=== PATIENT | female | born 1955 | race Caucasian/White ===

== ENCOUNTER 2017-10-27 15:28 | Emergency (ER) | payer MEDICAID, OTHER ==
[~2017-10-27] VITALS: Ht 160 cm; Wt 50.0 kg
[~2017-10-27 15:28] MED LIST: CYCL-1 PO; CYCL-394 PO; HAL5T PO; NAPR-56 PO; PROM25TA14 PO
[2017-10-27 15:39] VITALS: BP 107/78
== END 2017-10-27 17:53 | disposition left against medical advice (07) ==
LOC: EEVIPCON 15:28 → ER 15:28
DX: S22.32XA Fracture of one rib, left side, initial encounter for closed fracture (principal); J93.9 Pneumothorax, unspecified; X58.XXXA Exposure to other specified factors, initial encounter; Y93.89 Activity, other specified; Y92.89 Other specified places as the place of occurrence of the external cause; Y99.8 Other external cause status; Z88.5 Allergy status to narcotic agent; F20.9 Schizophrenia, unspecified; Z90.710 Acquired absence of both cervix and uterus; Z59.0 Homelessness
CPT/HCPCS: 71046; 99284

== ENCOUNTER 2017-10-28 16:38 | Inpatient (IN) | payer MEDICAID, OTHER ==
[~2017-10-28] VITALS: Ht 5200 cm; Wt 55.0 kg
[2017-10-28] MEDS ORDERED: normal saline 1000ML IV soln IVB ONE (17:10)
[2017-10-28] MEDS ORDERED: haloperidol lactate 5mg/ml inj IM ONE ×2 (17:25→20:20)
[2017-10-28] MEDS ORDERED: LORazepam 2 mg/ml vial IM ONE ×2 (17:25→20:10)
[2017-10-28 18:08] LABS: BASOPHILS % (AUTO) 0.3 % (0-1); EOSINOPHILS # (AUTO) 0.4 X10'3 (0-0.9); EOSINOPHILS % (AUTO) 5.1 % (0-6); HEMATOCRIT 30.5 % (35.0-45.0); HEMOGLOBIN 10.3 g/dl (12.0-16.0); LYMPHOCYTES # (AUTO) 1.4 X10'3 (1.1-4.8); LYMPHOCYTES % (AUTO) 18.9 % (21-51); MEAN CORPUSCULAR HEMOGLOBIN 28.4 PG (27.0-31.0); MEAN CORPUSCULAR HGB CONC 33.7 % (33.0-36.5); MEAN CORPUSCULAR VOLUME 84.1 FL (78-98); MEAN PLATELET VOLUME 7.2 FL (7.4-10.4); MONOCYTES # (AUTO) 0.5 X10'3 (0-0.9); MONOCYTES % (AUTO) 7.3 % (2-12); NEUTROPHILS # (AUTO) 5.1 X10'3 (1.8-7.7); NEUTROPHILS % (AUTO) 68.4 % (42-75); PLATELET COUNT 584 X10'3 (140-440); RED BLOOD COUNT 3.63 X10'6 (4.20-5.60); RED CELL DISTRIBUTION WIDTH 13.9 % (11.5-14.5); WHITE BLOOD COUNT 7.4 X10'3 (4.5-11.0)
[2017-10-28 18:17] LABS: PROTHROMBIN TIME 10.1 SECONDS (9.0-12.0)
[2017-10-28 18:25] LABS: URINE AMPHETAMINE SCREEN NEGATIVE (Neg); URINE BARBITUATE SCREEN NEGATIVE (Neg); URINE BENZODIAZEPINES SCREEN NEGATIVE (Neg); URINE CANNABINOID SCREEN NEGATIVE (Neg); URINE COCAINE SCREEN NEGATIVE (Neg); URINE METHADONE SCREEN NEGATIVE (Neg); URINE OPIATE SCREEN NEGATIVE (Neg); URINE PHENCYCLIDINE SCREEN NEGATIVE (Neg)
[2017-10-28 18:32] LABS: ALANINE AMINOTRANSFERASE 22 U/L (12-78); ALBUMIN 2.8 G/DL (3.4-5.0); ALBUMIN/GLOBULIN RATIO 0.7 (1.1-1.5); ALKALINE PHOSPHATASE 108 IU/L (46-116); ANION GAP 7 (8-16); ASPARTATE AMINO TRANSFERASE 18 U/L (10-37); BILIRUBIN,TOTAL 0.3 MG/DL (0.1-1.0); BLOOD UREA NITROGEN 15 MG/DL (7-18); BUN/CREATININE RATIO 31.9 (6.6-38.0); CALCIUM 8.5 MG/DL (8.5-10.1); CHLORIDE 105 MMOL/L (99-107); CREATININE 0.47 MG/DL (0.40-0.90); ETHANOL < 0.010 GM/DL (0.0-0.010); GLUCOSE 98 MG/DL (70-104); POTASSIUM 3.7 MMOL/L (3.5-5.1); SODIUM 142 MMOL/L (135-145); TOTAL CARBON DIOXIDE 29.9 MMOL/L (24-32); TOTAL PROTEIN 6.8 G/DL (6.4-8.2); eGFR > 90 ML/MIN
[2017-10-28] MEDS ORDERED: diphenhydrAMINE 50 mg/ml inj IM ONE (20:05)
[2017-10-28] MEDS: haloperidol decanoate***LONG-ACTING*** 100mg/ml **IM only** inj. IM ONE ×2 (20:12→20:17)
[2017-10-28] MEDS ORDERED: propofol 10mg/ml 20ml vial IV ONE (20:40)
[2017-10-28] MEDS ORDERED: ketamine 50 mg/ml 10ml vial IV ONE (20:45)
[2017-10-28] MEDS: normal saline 1000ml 1,000 ML IV SCH (21:10)
[2017-10-28] MEDS ORDERED: LIDOcaine 1.5% w/epinephrine 1:200,000 5ml ampul IJ ONE ×2 (21:40)
[2017-10-28] MEDS ORDERED: lidocaine 1.5% w/epinephrine 1:200,000 10ml vial MPF IJ ONE (21:40)
[2017-10-28] MEDS ORDERED: morphine 4 MG/ML inj SYRINge IV ONE (22:05)
[2017-10-28] MEDS ORDERED: albuterol 2.5 MG/3 ML nebule NEB PRN (23:15)
[2017-10-28] MEDS ORDERED: magnesium hydroxide 30ml (MOM) UD suspension PO PRN (23:15)
[2017-10-28] MEDS ORDERED: ondansetron/PF 4mg/2ml inj IV PRN (23:15)
[2017-10-28] MEDS ORDERED: morphine 4 MG/ML inj SYRINge IV PRN (23:15)
[2017-10-28] MEDS ORDERED: mag hydrox/Alum hydrox/simeth 30ml oral suspension PO PRN (23:15)
[2017-10-28] MEDS ORDERED: LORazepam 2 mg/ml vial IV PRN (23:20)
[2017-10-28] MEDS ORDERED: QUEtiapine 25mg tablet PO ONE (23:36)
[2017-10-29] MEDS: normal saline 1000ml 1,000 ML IV SCH ×3 (00:22→12:32)
[2017-10-29 05:33] LABS: CLARITY,URINE CLEAR (Clear); COLOR,URINE YELLOW (Yellow); GLUCOSE, URINE NEGATIVE (Neg); KETONES,URINE NEGATIVE (Neg); LEUKOCYTE ESTERASE ,URINE NEGATIVE (Neg); NITRITES, URINE NEGATIVE (Neg); OCCULT BLOOD,URINE NEGATIVE (Neg); PROTEIN,URINE NEGATIVE (Neg); UROBILINOGEN,URINE 0.2 E.U/dL (0.2-1.0)
[2017-10-29 05:45] LABS: UA COLLECTION TYPE VOIDED
[2017-10-29 07:00] LABS: BASOPHILS % (AUTO) 0.3 % (0-1); EOSINOPHILS # (AUTO) 0.3 X10'3 (0-0.9); EOSINOPHILS % (AUTO) 2.7 % (0-6); HEMATOCRIT 27.4 % (35.0-45.0); HEMOGLOBIN 9.1 g/dl (12.0-16.0); LYMPHOCYTES % (AUTO) 9.3 % (21-51); MEAN CORPUSCULAR HEMOGLOBIN 28.1 PG (27.0-31.0); MEAN CORPUSCULAR HGB CONC 33.2 % (33.0-36.5); MEAN CORPUSCULAR VOLUME 84.7 FL (78-98); MEAN PLATELET VOLUME 7.4 FL (7.4-10.4); MONOCYTES # (AUTO) 0.5 X10'3 (0-0.9); MONOCYTES % (AUTO) 4.6 % (2-12); NEUTROPHILS # (AUTO) 8.6 X10'3 (1.8-7.7); NEUTROPHILS % (AUTO) 83.1 % (42-75); PLATELET COUNT 506 X10'3 (140-440); RED BLOOD COUNT 3.24 X10'6 (4.20-5.60); RED CELL DISTRIBUTION WIDTH 14.3 % (11.5-14.5); WHITE BLOOD COUNT 10.3 X10'3 (4.5-11.0)
[2017-10-29 07:03] LABS: ALBUMIN 2.1 G/DL (3.4-5.0); ANION GAP 6 (8-16); BLOOD UREA NITROGEN 11 MG/DL (7-18); BUN/CREATININE RATIO 22.9 (6.6-38.0); CALCIUM 7.9 MG/DL (8.5-10.1); CHLORIDE 109 MMOL/L (99-107); CREATININE 0.48 MG/DL (0.40-0.90); GLUCOSE 101 MG/DL (70-104); POTASSIUM 3.9 MMOL/L (3.5-5.1); SODIUM 141 MMOL/L (135-145); TOTAL CARBON DIOXIDE 26.3 MMOL/L (24-32); eGFR > 90 ML/MIN
[2017-10-29] MEDS: quetiapine 100mg tablet PO SCH ×2 (08:15→20:26)
[2017-10-29] MEDS: docusate sod 100mg capsule PO SCH ×2 (08:15→20:00)
[2017-10-29] MEDS ORDERED: UNABLE TO OBTAIN (11:45)
[2017-10-29 21:30] VITALS: BP 90/61
[2017-10-29] MEDS ORDERED: ziprasidone IM 20mg inj **IM only IM PRN (22:15)
[2017-10-29] MEDS ORDERED: LORazepam 1 MG tablet PO PRN (22:15)
[2017-10-30] VITALS: BP 103/18
[2017-10-30] MEDS: normal saline 1000ml 1,000 ML IV SCH ×2 (01:52→15:12)
[2017-10-30 07:00] VITALS: BP 102/66
[2017-10-30] MEDS: quetiapine 100mg tablet PO SCH ×2 (08:00→20:00)
[2017-10-30] MEDS: docusate sod 100mg capsule PO SCH ×2 (08:00→20:00)
[2017-10-30] MEDS: acetaminophen 325mg tablet PO PRN ×2 (09:49→15:54)
[2017-10-30] MEDS: levoFLOXACIN 750MG TABLET PO SCH (11:09)
[2017-10-30 12:00] VITALS: BP 97/66
[2017-10-30 16:09] LABS: BASOPHILS % (AUTO) 0.5 % (0-1); EOSINOPHILS # (AUTO) 0.3 X10'3 (0-0.9); EOSINOPHILS % (AUTO) 4.1 % (0-6); HEMATOCRIT 30.4 % (35.0-45.0); HEMOGLOBIN 10.2 g/dl (12.0-16.0); LYMPHOCYTES # (AUTO) 1.1 X10'3 (1.1-4.8); LYMPHOCYTES % (AUTO) 13.5 % (21-51); MEAN CORPUSCULAR HEMOGLOBIN 28.1 PG (27.0-31.0); MEAN CORPUSCULAR HGB CONC 33.4 % (33.0-36.5); MEAN CORPUSCULAR VOLUME 84.1 FL (78-98); MEAN PLATELET VOLUME 7.3 FL (7.4-10.4); MONOCYTES # (AUTO) 0.5 X10'3 (0-0.9); MONOCYTES % (AUTO) 6.3 % (2-12); NEUTROPHILS # (AUTO) 6.4 X10'3 (1.8-7.7); NEUTROPHILS % (AUTO) 75.6 % (42-75); PLATELET COUNT 523 X10'3 (140-440); RED BLOOD COUNT 3.62 X10'6 (4.20-5.60); WHITE BLOOD COUNT 8.4 X10'3 (4.5-11.0)
[2017-10-30 16:18] LABS: ALBUMIN 2.3 G/DL (3.4-5.0); ANION GAP 8 (8-16); BLOOD UREA NITROGEN 12 MG/DL (7-18); BUN/CREATININE RATIO 22.2 (6.6-38.0); CALCIUM 8.3 MG/DL (8.5-10.1); CHLORIDE 107 MMOL/L (99-107); CREATININE 0.54 MG/DL (0.40-0.90); GLUCOSE 112 MG/DL (70-104); POTASSIUM 4.2 MMOL/L (3.5-5.1); SODIUM 143 MMOL/L (135-145); TOTAL CARBON DIOXIDE 28.5 MMOL/L (24-32); eGFR > 90 ML/MIN
[2017-10-30 18:00] VITALS: BP 93/53
[2017-10-30] MEDS: lactobacillus rhamnosus 10,000 MMU CELLS/CAPSULE PO SCH (20:00)
[2017-10-31] MEDS: normal saline 1000ml 1,000 ML IV SCH ×2 (02:28→17:52)
[2017-10-31 05:59] LABS: BASOPHILS % (AUTO) 0.4 % (0-1); EOSINOPHILS # (AUTO) 0.4 X10'3 (0-0.9); EOSINOPHILS % (AUTO) 5.2 % (0-6); HEMATOCRIT 30.2 % (35.0-45.0); LYMPHOCYTES % (AUTO) 13.3 % (21-51); MEAN CORPUSCULAR HGB CONC 33.2 % (33.0-36.5); MEAN CORPUSCULAR VOLUME 84.4 FL (78-98); MEAN PLATELET VOLUME 7.6 FL (7.4-10.4); MONOCYTES # (AUTO) 0.5 X10'3 (0-0.9); NEUTROPHILS # (AUTO) 5.8 X10'3 (1.8-7.7); NEUTROPHILS % (AUTO) 75.1 % (42-75); PLATELET COUNT 513 X10'3 (140-440); RED BLOOD COUNT 3.58 X10'6 (4.20-5.60); RED CELL DISTRIBUTION WIDTH 14.2 % (11.5-14.5); WHITE BLOOD COUNT 7.8 X10'3 (4.5-11.0)
[2017-10-31 06:20] LABS: ANION GAP 8 (8-16); CHLORIDE 106 MMOL/L (99-107); GLUCOSE 132 MG/DL (70-104); POTASSIUM 3.9 MMOL/L (3.5-5.1); SODIUM 142 MMOL/L (135-145); TOTAL CARBON DIOXIDE 28.5 MMOL/L (24-32)
[2017-10-31 06:21] LABS: ALBUMIN 2.2 G/DL (3.4-5.0); BLOOD UREA NITROGEN 8 MG/DL (7-18); BUN/CREATININE RATIO 17.8 (6.6-38.0); CALCIUM 8.4 MG/DL (8.5-10.1); CREATININE 0.45 MG/DL (0.40-0.90); eGFR > 90 ML/MIN
[2017-10-31 07:30] VITALS: BP 95/75
[2017-10-31] MEDS: lactobacillus rhamnosus 10,000 MMU CELLS/CAPSULE PO SCH ×2 (07:58→20:00)
[2017-10-31] MEDS: HYDROcodone/acetaminophen 10/325mg tab PO PRN ×2 (07:59→09:39)
[2017-10-31] MEDS: docusate sod 100mg capsule PO SCH ×2 (08:00→20:00)
[2017-10-31] MEDS: quetiapine 100mg tablet PO SCH ×2 (08:00→09:02)
[2017-10-31 11:00] VITALS: BP 92/70
[2017-10-31] MEDS: levoFLOXACIN 750MG TABLET PO SCH (11:20)
[2017-10-31 18:00] VITALS: BP 99/58
[2017-11-01 05:06] LABS: BASOPHILS % (AUTO) 0.6 % (0-1); EOSINOPHILS # (AUTO) 0.4 X10'3 (0-0.9); EOSINOPHILS % (AUTO) 6.1 % (0-6); HEMATOCRIT 30.8 % (35.0-45.0); HEMOGLOBIN 10.3 g/dl (12.0-16.0); LYMPHOCYTES # (AUTO) 1.1 X10'3 (1.1-4.8); LYMPHOCYTES % (AUTO) 17.6 % (21-51); MEAN CORPUSCULAR HEMOGLOBIN 27.9 PG (27.0-31.0); MEAN CORPUSCULAR HGB CONC 33.5 % (33.0-36.5); MEAN CORPUSCULAR VOLUME 83.4 FL (78-98); MEAN PLATELET VOLUME 7.6 FL (7.4-10.4); MONOCYTES # (AUTO) 0.5 X10'3 (0-0.9); MONOCYTES % (AUTO) 8.1 % (2-12); NEUTROPHILS # (AUTO) 4.2 X10'3 (1.8-7.7); NEUTROPHILS % (AUTO) 67.6 % (42-75); PLATELET COUNT 506 X10'3 (140-440); RED BLOOD COUNT 3.69 X10'6 (4.20-5.60); RED CELL DISTRIBUTION WIDTH 14.2 % (11.5-14.5); WHITE BLOOD COUNT 6.2 X10'3 (4.5-11.0)
[2017-11-01 05:20] LABS: ALBUMIN 2.2 G/DL (3.4-5.0); ANION GAP 7 (8-16); BLOOD UREA NITROGEN 10 MG/DL (7-18); BUN/CREATININE RATIO 19.2 (6.6-38.0); CALCIUM 8.6 MG/DL (8.5-10.1); CHLORIDE 105 MMOL/L (99-107); CREATININE 0.52 MG/DL (0.40-0.90); GLUCOSE 96 MG/DL (70-104); SODIUM 141 MMOL/L (135-145); TOTAL CARBON DIOXIDE 29.3 MMOL/L (24-32); eGFR > 90 ML/MIN
[2017-11-01] MEDS: normal saline 1000ml 1,000 ML IV SCH ×2 (07:12→20:32)
[2017-11-01 07:42] VITALS: BP 86/60
[2017-11-01] MEDS: lactobacillus rhamnosus 10,000 MMU CELLS/CAPSULE PO SCH ×2 (08:00→20:50)
[2017-11-01] MEDS: quetiapine 100mg tablet PO SCH ×2 (08:00→20:50)
[2017-11-01] MEDS: docusate sod 100mg capsule PO SCH ×2 (08:00→20:50)
[2017-11-01] MEDS: levoFLOXACIN 750MG TABLET PO SCH (11:00)
[2017-11-01] MEDS ORDERED: haloperidol decanoate***LONG-ACTING*** 100mg/ml **IM only** inj. IM ONE (15:40)
[2017-11-01 18:00] VITALS: BP 97/64
[2017-11-01] MEDS: acetaminophen 325mg tablet PO PRN (20:55)
[2017-11-02] VITALS: BP 90/65
[2017-11-02] MEDS: quetiapine 100mg tablet PO SCH ×2 (07:58→18:53)
[2017-11-02] MEDS: docusate sod 100mg capsule PO SCH ×2 (08:00→18:55)
[2017-11-02] MEDS: lactobacillus rhamnosus 10,000 MMU CELLS/CAPSULE PO SCH ×2 (08:00→18:53)
[2017-11-02] MEDS: normal saline 1000ml 1,000 ML IV SCH ×2 (09:52→23:12)
[2017-11-02 11:00] VITALS: BP 88/57
[2017-11-02] MEDS: levoFLOXACIN 750MG TABLET PO SCH (11:00)
[2017-11-02] MEDS ORDERED: paliperidone palmitate inj 234 MG/1.5 ML SYRINGE IM ONE (11:55)
[2017-11-02 14:20] LABS: BASOPHILS % (AUTO) 0.8 % (0-1); EOSINOPHILS # (AUTO) 0.5 X10'3 (0-0.9); EOSINOPHILS % (AUTO) 7.6 % (0-6); HEMATOCRIT 36.7 % (35.0-45.0); HEMOGLOBIN 12.1 g/dl (12.0-16.0); LYMPHOCYTES # (AUTO) 1.5 X10'3 (1.1-4.8); LYMPHOCYTES % (AUTO) 24.2 % (21-51); MEAN CORPUSCULAR VOLUME 84.9 FL (78-98); MEAN PLATELET VOLUME 7.8 FL (7.4-10.4); MONOCYTES # (AUTO) 0.5 X10'3 (0-0.9); MONOCYTES % (AUTO) 7.9 % (2-12); NEUTROPHILS # (AUTO) 3.7 X10'3 (1.8-7.7); NEUTROPHILS % (AUTO) 59.5 % (42-75); PLATELET COUNT 637 X10'3 (140-440); RED BLOOD COUNT 4.32 X10'6 (4.20-5.60); RED CELL DISTRIBUTION WIDTH 14.4 % (11.5-14.5); WHITE BLOOD COUNT 6.3 X10'3 (4.5-11.0)
[2017-11-02 14:39] LABS: ALBUMIN 2.6 G/DL (3.4-5.0); ANION GAP 8 (8-16); BLOOD UREA NITROGEN 15 MG/DL (7-18); BUN/CREATININE RATIO 27.8 (6.6-38.0); CALCIUM 8.7 MG/DL (8.5-10.1); CHLORIDE 102 MMOL/L (99-107); CREATININE 0.54 MG/DL (0.40-0.90); GLUCOSE 112 MG/DL (70-104); POTASSIUM 3.7 MMOL/L (3.5-5.1); SODIUM 140 MMOL/L (135-145); TOTAL CARBON DIOXIDE 29.6 MMOL/L (24-32); eGFR > 90 ML/MIN
[2017-11-02] MEDS: acetaminophen 325mg tablet PO PRN (18:53)
[2017-11-02 22:45] VITALS: BP 87/56
[2017-11-03 07:00] VITALS: BP 91/55
[2017-11-03] MEDS: quetiapine 100mg tablet PO SCH ×2 (07:15→20:41)
[2017-11-03] MEDS: lactobacillus rhamnosus 10,000 MMU CELLS/CAPSULE PO SCH ×2 (07:15→20:41)
[2017-11-03] MEDS: docusate sod 100mg capsule PO SCH ×2 (07:18→20:00)
[2017-11-03] MEDS: aspirin 81mg tab.chew PO SCH (07:44)
[2017-11-03] MEDS: levoFLOXACIN 750MG TABLET PO SCH (11:00)
[2017-11-03] MEDS: normal saline 1000ml 1,000 ML IV SCH (12:32)
[2017-11-03 20:00] VITALS: BP 84/52
[2017-11-04] MEDS: normal saline 1000ml 1,000 ML IV SCH ×2 (01:52→15:12)
[2017-11-04] MEDS: docusate sod 100mg capsule PO SCH ×2 (08:00→20:00)
[2017-11-04] MEDS: lactobacillus rhamnosus 10,000 MMU CELLS/CAPSULE PO SCH ×2 (08:00→20:00)
[2017-11-04] MEDS: aspirin 81mg tab.chew PO SCH (08:50)
[2017-11-04] MEDS: quetiapine 100mg tablet PO SCH (08:50)
[2017-11-04 11:00] VITALS: BP 103/63
[2017-11-04] MEDS: levoFLOXACIN 750MG TABLET PO SCH (11:00)
[2017-11-04] MEDS ORDERED: mag hydrox/Alum hydrox/simeth 30ml oral suspension PO PRN (13:40)
[2017-11-05] MEDS: normal saline 1000ml 1,000 ML IV SCH ×2 (01:30→17:52)
[2017-11-05] MEDS: docusate sod 100mg capsule PO SCH ×2 (08:00→22:02)
[2017-11-05] MEDS: lactobacillus rhamnosus 10,000 MMU CELLS/CAPSULE PO SCH ×2 (08:00→22:02)
[2017-11-05] MEDS: aspirin 81mg tab.chew PO SCH (08:30)
[2017-11-05] MEDS: levoFLOXACIN 750MG TABLET PO SCH (11:00)
[2017-11-05 15:01] LABS: ALANINE AMINOTRANSFERASE 16 U/L (12-78); ALBUMIN 2.3 G/DL (3.4-5.0); ALBUMIN/GLOBULIN RATIO 0.6 (1.1-1.5); ALKALINE PHOSPHATASE 104 IU/L (46-116); ANION GAP 6 (8-16); ASPARTATE AMINO TRANSFERASE 18 U/L (10-37); BILIRUBIN,TOTAL 0.2 MG/DL (0.1-1.0); BLOOD UREA NITROGEN 11 MG/DL (7-18); BUN/CREATININE RATIO 21.2 (6.6-38.0); CALCIUM 8.1 MG/DL (8.5-10.1); CHLORIDE 106 MMOL/L (99-107); CREATININE 0.52 MG/DL (0.40-0.90); GLUCOSE 111 MG/DL (70-104); POTASSIUM 3.7 MMOL/L (3.5-5.1); SODIUM 141 MMOL/L (135-145); TOTAL CARBON DIOXIDE 29.5 MMOL/L (24-32); eGFR > 90 ML/MIN
[2017-11-05 15:14] LABS: BASOPHILS % (AUTO) 0.9 % (0-1); EOSINOPHILS # (AUTO) 0.3 X10'3 (0-0.9); EOSINOPHILS % (AUTO) 6.6 % (0-6); HEMATOCRIT 30.1 % (35.0-45.0); HEMOGLOBIN 9.9 g/dl (12.0-16.0); LYMPHOCYTES # (AUTO) 1.2 X10'3 (1.1-4.8); LYMPHOCYTES % (AUTO) 22.3 % (21-51); MEAN CORPUSCULAR HGB CONC 32.8 % (33.0-36.5); MEAN CORPUSCULAR VOLUME 85.4 FL (78-98); MEAN PLATELET VOLUME 7.5 FL (7.4-10.4); MONOCYTES # (AUTO) 0.4 X10'3 (0-0.9); MONOCYTES % (AUTO) 8.1 % (2-12); NEUTROPHILS # (AUTO) 3.3 X10'3 (1.8-7.7); NEUTROPHILS % (AUTO) 62.1 % (42-75); PLATELET COUNT 478 X10'3 (140-440); RED BLOOD COUNT 3.52 X10'6 (4.20-5.60); RED CELL DISTRIBUTION WIDTH 13.7 % (11.5-14.5); WHITE BLOOD COUNT 5.2 X10'3 (4.5-11.0)
[2017-11-05] MEDS: acetaminophen 325mg tablet PO PRN (16:08)
[2017-11-05 20:00] VITALS: BP 90/49
[2017-11-06 07:43] VITALS: BP 102/61
[2017-11-06 07:46] VITALS: BP 102/61
[2017-11-06] MEDS: docusate sod 100mg capsule PO SCH (08:00)
[2017-11-06] MEDS: lactobacillus rhamnosus 10,000 MMU CELLS/CAPSULE PO SCH ×2 (08:00→20:54)
[2017-11-06] MEDS: aspirin 81mg tab.chew PO SCH (08:30)
[2017-11-06 11:00] VITALS: BP 73/46
[2017-11-06] MEDS: levoFLOXACIN 750MG TABLET PO SCH (11:00)
[2017-11-06] MEDS ORDERED: PALI156D IM (17:08)
[2017-11-06 20:00] VITALS: BP 93/63
[2017-11-06] MEDS: acetaminophen 325mg tablet PO PRN (20:55)
[2017-11-09] MEDS ORDERED: paliperidone palmitate 156 mg/ml inj.**IM only IM ONE (08:00)
== END 2017-11-07 07:55 | disposition home or self-care (01) | DRG 135 ==
LOC: ER 16:38 → EEVIPCON 23:12 → ED HOLD 23:12 → EDBEDREQ 10-29 20:27 → SUR 3N 10-29 21:30
PROVIDERS: ADMIT Family Medicine; ATTEND Emergency Medicine
PROC: 0W9B30Z Drainage of Left Pleural Cavity with Drainage Device, Percutaneous Approach (ICD-10-PCS; principal; 2017-10-28)
DX: S27.2XXA Traumatic hemopneumothorax, initial encounter (principal); E43 Unspecified severe protein-calorie malnutrition; F20.0 Paranoid schizophrenia; S22.39XA Fracture of one rib, unspecified side, initial encounter for closed fracture; M54.9 Dorsalgia, unspecified; Y04.0XXA Assault by unarmed brawl or fight, initial encounter; G89.29 Other chronic pain; D64.9 Anemia, unspecified; Z90.710 Acquired absence of both cervix and uterus; Z59.0 Homelessness; Z98.891 History of uterine scar from previous surgery; Z88.6 Allergy status to analgesic agent; Y93.89 Activity, other specified; Y92.89 Other specified places as the place of occurrence of the external cause; Y99.8 Other external cause status
CPT/HCPCS: 32551; 36415; 71045; 80048; 80053; 80305; 80320; 81003; 84443; 85025; 85610; 87070; 93005; 94760; 96372; 96374; 99291; 99292; A4414; A6449; J1200; J1630; J2060; J2270; J2704; J3486; J3490; J7030

== ENCOUNTER 2018-12-13 10:25 | Emergency (ER) | payer MEDICAID ==
[~2018-12-13] VITALS: Ht 160 cm; Wt 67.3 kg
[~2018-12-13 10:25] MED LIST changes: -CYCL-1 PO; -CYCL-394 PO; -HAL5T PO; -NAPR-56 PO; +PALI156D IM; -PROM25TA14 PO; +UNABLE TO OBTAIN
[2018-12-13 11:04] VITALS: BP 100/68
[2018-12-13] MEDS ORDERED: NAPR-996 PO (12:38)
== END 2018-12-13 12:50 | disposition home or self-care (01) ==
LOC: ER 10:26
DX: M25.562 Pain in left knee (principal); G89.29 Other chronic pain; Z90.710 Acquired absence of both cervix and uterus; Z98.890 Other specified postprocedural states; Z59.0 Homelessness; Z88.5 Allergy status to narcotic agent; Z79.899 Other long term (current) drug therapy
CPT/HCPCS: 73560; 99283

== ENCOUNTER 2019-02-03 14:33 | Emergency (ER) | payer MEDICAID ==
[~2019-02-03] VITALS: Ht 160 cm; Wt 67.7 kg
[~2019-02-03 14:33] MED LIST changes: +NAPR-996 PO
[2019-02-03 14:40] VITALS: BP 101/73
[2019-02-03] MEDS ORDERED: ACET-2119 PO (15:35)
== END 2019-02-03 16:13 | disposition home or self-care (01) ==
LOC: ER 14:33
DX: M13.862 Other specified arthritis, left knee (principal); G89.29 Other chronic pain; F20.9 Schizophrenia, unspecified; F29 Unspecified psychosis not due to a substance or known physiological condition; Z88.6 Allergy status to analgesic agent; Z79.899 Other long term (current) drug therapy; Z98.890 Other specified postprocedural states; Z90.710 Acquired absence of both cervix and uterus; Z59.0 Homelessness
CPT/HCPCS: 99282

== ENCOUNTER 2019-08-26 15:43 | Emergency (ER) | payer MEDICARE, MEDICAID ==
[~2019-08-26] VITALS: Ht 160 cm; Wt 70.0 kg
[2019-08-26] MEDS ORDERED: HYDR-3965 PO (17:14)
[2019-08-26] MEDS ORDERED: triamcinolone acetonide 40mg/ml inj IM ONE (17:15)
[2019-08-26 17:24] VITALS: BP 141/86
== END 2019-08-26 17:34 | disposition home or self-care (01) ==
LOC: ER 15:44
DX: M25.562 Pain in left knee (principal); G89.29 Other chronic pain; F20.9 Schizophrenia, unspecified; Z90.710 Acquired absence of both cervix and uterus; Z98.890 Other specified postprocedural states; Z59.0 Homelessness; Z88.5 Allergy status to narcotic agent; Z79.899 Other long term (current) drug therapy
CPT/HCPCS: 96372; 99284; J3301

== ENCOUNTER 2019-10-08 17:38 | Emergency (ER) | payer MEDICARE, MEDICAID ==
[~2019-10-08] VITALS: Ht 160 cm; Wt 73.2 kg
[2019-10-08 18:09] VITALS: BP 148/57
[2019-10-08] MEDS ORDERED: ketorolac tromethamine 15mg/ml inj. IM ONE (19:10)
[2019-10-08] MEDS ORDERED: orphenadrine citrate 60mg/2ml inj. IM ONE (19:10)
[2019-10-08] MEDS ORDERED: NAPR-56 PO (19:14)
[2019-10-08] MEDS ORDERED: METH-360 PO (19:14)
== END 2019-10-08 19:53 | disposition home or self-care (01) ==
LOC: ER 17:38
DX: M54.5 Low back pain (principal); G89.29 Other chronic pain; F20.9 Schizophrenia, unspecified; Z90.710 Acquired absence of both cervix and uterus; Z98.890 Other specified postprocedural states; Z59.0 Homelessness; Z88.5 Allergy status to narcotic agent; Z79.899 Other long term (current) drug therapy
CPT/HCPCS: 96372; 99284; J1885; J2360

== ENCOUNTER 2019-12-28 14:15 | Emergency (ER) | payer MEDICARE, MEDICAID ==
[~2019-12-28] VITALS: Ht 160 cm; Wt 80.0 kg
[~2019-12-28 14:15] MED LIST changes: +METH-360 PO
[2019-12-28] MEDS ORDERED: ketorolac tromethamine 15mg/ml inj. IM ONE (14:55)
[2019-12-28] MEDS ORDERED: orphenadrine citrate 60mg/2ml inj. IM ONE (14:55)
[2019-12-28] MEDS ORDERED: ORPH100T2 PO (14:57)
[2019-12-28 15:18] VITALS: BP 118/83
== END 2019-12-28 15:20 | disposition home or self-care (01) ==
LOC: ER 14:16
DX: G89.29 Other chronic pain (principal); M54.9 Dorsalgia, unspecified; F20.9 Schizophrenia, unspecified; Z90.710 Acquired absence of both cervix and uterus; Z98.890 Other specified postprocedural states; Z59.0 Homelessness; Z88.5 Allergy status to narcotic agent; Z79.899 Other long term (current) drug therapy
CPT/HCPCS: 96372; 99284; J1885; J2360

== ENCOUNTER 2020-04-25 20:53 | Emergency (ER) | payer MEDICARE, MEDICAID ==
[~2020-04-25] VITALS: Ht 160 cm; Wt 67.0 kg
[~2020-04-25 20:53] MED LIST changes: +ORPH100T2 PO
[2020-04-25 21:04] VITALS: BP 100/72
[2020-04-25] MEDS ORDERED: ondansetron 4mg rapidly disintigrating tab PO ONE (23:00)
[2020-04-25] MEDS ORDERED: HYDROcodone/acetaminophen 5mg/325mg tablet PO ONE (23:15)
== END 2020-04-25 23:19 | disposition home or self-care (01) ==
LOC: ER 20:53
DX: S83.91XA Sprain of unspecified site of right knee, initial encounter (principal); S80.211A Abrasion, right knee, initial encounter; G89.29 Other chronic pain; F20.9 Schizophrenia, unspecified; Z90.710 Acquired absence of both cervix and uterus; Z98.890 Other specified postprocedural states; Z59.0 Homelessness; Z88.5 Allergy status to narcotic agent; Z79.899 Other long term (current) drug therapy; W01.0XXA Fall on same level from slipping, tripping and stumbling without subsequent striking against object, initial encounter; Y93.89 Activity, other specified; Y92.89 Other specified places as the place of occurrence of the external cause; Y99.8 Other external cause status
CPT/HCPCS: 73564; 99283

== ENCOUNTER 2021-03-29 11:13 | Emergency (ER) | payer MEDICARE, MEDICAID ==
[~2021-03-29] VITALS: Ht 160 cm; Wt 68.2 kg
[2021-03-29 11:24] VITALS: BP 102/68
[2021-03-29] MEDS ORDERED: ketorolac tromethamine 15mg/ml inj. IM ONE (12:00)
== END 2021-03-29 12:30 | disposition home or self-care (01) ==
LOC: ER 11:14
DX: M54.5 Low back pain (principal); G89.29 Other chronic pain; F20.9 Schizophrenia, unspecified; Z90.710 Acquired absence of both cervix and uterus; Z98.890 Other specified postprocedural states; Z59.0 Homelessness; Z88.5 Allergy status to narcotic agent; Z79.899 Other long term (current) drug therapy
CPT/HCPCS: 96372; 99283; J1885

== ENCOUNTER → 2021-05-21 | Emergency (ER) | payer MEDICARE, MEDICAID ==
[~2021-05-21] VITALS: Ht 160 cm; Wt 65.9 kg
[~2021-05-21] MED LIST changes: +ACET-1939 PO; +BENZ0.5T43 PO; +BUPR75TA12 PO; +CALC-472; +HYDR50TA65 PO; +MULT-1085 PO; +OLAN2.5T3 PO; +OLAN5TAB75 PO; +PER5325T PO; +VALB80CA PO
[2021-05-21 12:48] VITALS: BP 99/66
== END | disposition left against medical advice (07) ==
LOC: ER 12:27
DX: M54.9 Dorsalgia, unspecified (principal); Z53.21 Procedure and treatment not carried out due to patient leaving prior to being seen by health care provider

== ENCOUNTER 2021-05-29 11:41 | Observation (INO) | payer MEDICARE, MEDICAID ==
[2021-05-25 15:33] LABS: BASOPHILS % (AUTO) 0.6 % (0-1); EOSINOPHILS # (AUTO) 0.1 X10'3 (0-0.9); EOSINOPHILS % (AUTO) 2.8 % (0-6); LYMPHOCYTES # (AUTO) 1.6 X10'3 (1.1-4.8); MEAN CORPUSCULAR HEMOGLOBIN 30.9 PG (27.0-31.0); MEAN CORPUSCULAR HGB CONC 34.1 g/dL (33.0-36.5); MEAN CORPUSCULAR VOLUME 90.5 FL (78-98); MEAN PLATELET VOLUME 7.5 FL (7.4-10.4); MONOCYTES # (AUTO) 0.4 X10'3 (0-0.9); MONOCYTES % (AUTO) 8.5 % (2-12); NEUTROPHILS # (AUTO) 2.7 X10'3 (1.8-7.7); NEUTROPHILS % (AUTO) 55.1 % (42-75); PRE OP HEMATOCRIT 40.8 % (35.0-45.0); PRE OP HEMOGLOBIN 13.9 g/dL (12.0-16.0); PRE OP PLATELET COUNT 251 X10'3 (140-440); RED BLOOD COUNT 4.51 X10'6 (4.20-5.60); RED CELL DISTRIBUTION WIDTH 12.5 % (11.5-14.5)
[2021-05-25 15:46] LABS: ALBUMIN 3.3 G/DL (3.4-5.0); ALKALINE PHOSPHATASE 69 IU/L (46-116); BLOOD UREA NITROGEN 12 MG/DL (7-18); BUN/CREATININE RATIO 17.9 (6.6-38.0); CALCIUM 8.6 MG/DL (8.5-10.1); CHLORIDE 108 MMOL/L (99-107); CREATININE 0.67 MG/DL (0.40-0.90); PRE OP ALT 19 U/L (30-65); PRE OP ANION GAP 7 (8-16); PRE OP AST 14 U/L (10-37); PRE OP BILIRUB, TOTAL 0.3 MG/DL (0.0-1.0); PRE OP GLUCOSE 91 MG/DL (70-104); PRE OP POTASSIUM 4.1 MMOL/L (3.4-5.1); PRE OP SODIUM 143 MMOL/L (135-145); TOTAL CARBON DIOXIDE 28.5 MMOL/L (24-32); TOTAL PROTEIN 6.6 G/DL (6.4-8.2); eGFR 88 ML/MIN
[~2021-05-29] VITALS: Ht 160 cm; Wt 66.8 kg
[2021-05-29] VITALS (17 sets, daily range): BP systolic 96–127; BP diastolic 54–81
[~2021-05-29 11:41] MED LIST changes: -BUPR75TA12 PO; -METH-360 PO; -NAPR-996 PO; -ORPH100T2 PO; -PALI156D IM; -PER5325T PO; -UNABLE TO OBTAIN; +ceFAZolin 2gm in dextrose, iso 50 ML IV ONE; +famotidine 20mg tablet PO ONE
[2021-05-29] MEDS: ringers solution, lacted 1,000 ML IV SCH ×2 (12:10→17:00)
[2021-05-29] MEDS ORDERED: morphine 2 MG/ML inj. syringe IV PRN (12:45)
[2021-05-29] MEDS ORDERED: labetalol 20mg/4ml (5mg/ml) syringe IV PRN (12:45)
[2021-05-29] MEDS ORDERED: morphine 4 MG/ML inj SYRINge IV PRN (12:45)
[2021-05-29] MEDS ORDERED: fentaNYL/PF 50MCG/1 ML 2ML syringe IV PRN (12:45)
[2021-05-29] MEDS ORDERED: ringers solution, lacted 1,000 ML IV SCH (12:45)
[2021-05-29] MEDS ORDERED: ondansetron/PF 4mg/2ml inj IV PRN ×2 (12:45→16:15)
[2021-05-29] MEDS ORDERED: hydrALAZINE 20mg/ml inj. IV PRN (12:45)
[2021-05-29] MEDS ORDERED: BUPIVAcaine/PF 2.5 mg/ml (0.25%) 30ml vial ONE (13:47)
[2021-05-29] MEDS ORDERED: LIDOcaine 1% 30ml preserv. free vial ONE (13:48)
[2021-05-29] MEDS ORDERED: BUPIVAcaine/PF 2.5mg/ml (0.25%) 10ml vial ONE (14:03)
[2021-05-29] MEDS ORDERED: BUPIVACAINE liposomal/PF 13.3 MG/ML vial IM ONE (14:03)
[2021-05-29] MEDS ORDERED: phenylephrine 10mg/ml inj. ONE (14:31)
[2021-05-29] MEDS ORDERED: neostigmine methylsulfate 1 MG/ML 10ml vial ONE (14:31)
[2021-05-29] MEDS ORDERED: desflurane 240ml liquid inh. IH ONE (14:31)
[2021-05-29] MEDS ORDERED: glycopyrrolate 0.2mg/ml inj ONE (14:31)
[2021-05-29] MEDS ORDERED: morphine 10mg/ml inj. ONE (14:42)
[2021-05-29] MEDS ORDERED: propofol inj 20 ML IV ONE (14:43)
[2021-05-29] MEDS ORDERED: LIDOcaine 2% (20mg/ml) 5ml vial ONE (14:43)
[2021-05-29] MEDS ORDERED: rocuronium 10mg/ml inj IV ONE (14:44)
[2021-05-29] MEDS ORDERED: dexamethasone sod phosphate 4mg/ml inj. ONE (14:44)
[2021-05-29] MEDS ORDERED: ondansetron/PF 4mg/2ml inj ONE (14:44)
[2021-05-29] MEDS ORDERED: albumin (Human) 5% 250ml 250 ML IV ONE (15:03)
--- NOTE | 2021-05-29 15:55 | NUR ---
Received from OR via , accompanied by Anesthesiologist and report given by Anesthesiolgist. PATIENT A&OX4, DENIES PAIN, V/S WNL, SCD ON , PIV 20G LUE, BANDAIDS TO LAPS SITES OF ABDOMEN CDI.
[2021-05-29] MEDS: fentaNYL/PF 50MCG/1 ML 2ML syringe IV PRN ×2 (16:07→16:12)
[2021-05-29] MEDS: HYDROmorph./NS 0.2 mg/ml CADD 100 ML IV SCH ×2 (16:15→17:00)
[2021-05-29] MEDS ORDERED: CADD PCA waste documentation MC PRN (16:15)
[2021-05-29] MEDS ORDERED: naloxone 0.4 mg/ml inj IV PRN (16:15)
[2021-05-29] MEDS ORDERED: [UNRECOGNIZED DRUG - OTHER] PO PRN (16:25)
--- NOTE | 2021-05-29 16:35 | NUR ---
Patient in room . I have received report from Jarett ogodson and had the opportunity to ask questions and assume patient care.
--- NOTE | 2021-05-29 16:45 | NUR ---
PATIENT A&OX4, DENIES PAIN, V/S WNL, SCD ON , PIV 20G LUE, BANDAIDS TO LAPS SITES OF ABDOMEN CDI. TAKEN TO 346A WITH ALL BELONGINGS AND HOOKED UP TO MONITORS IN ROOM AND REPORT GIVEN TO RN WHO HAS TAKEN OVER PATIENT CARE.
--- NOTE | 2021-05-29 17:04 | NUR ---
pt did not come up with a Dilaudid CADD.
[2021-05-29] MEDS: Potassium Cl inj 20 MEQ in ringers solution, lacted 1,000 ML IV SCH (17:41)
[2021-05-29] MEDS: oxyCODONE/APAP 5-325mg tablet PO PRN (17:45)
--- NOTE | 2021-05-29 18:32 | NUR ---
Problems reprioritized. Patient report given, questions answered & plan of care reviewed with Laura goodson .
[2021-05-29] MEDS: heparin, porcine 5000 units/ml vial SQ SCH (20:38)
[2021-05-29] MEDS ORDERED: hydrOXYzine 25 MG tablet PO SCH (21:00)
[2021-05-29] MEDS ORDERED: OLANZAPINE 5 MG TABLET PO SCH (21:00)
[2021-05-30] VITALS: BP 111/74
[2021-05-30] MEDS: Potassium Cl inj 20 MEQ in ringers solution, lacted 1,000 ML IV SCH (01:38)
[2021-05-30] MEDS: oxyCODONE/APAP 5-325mg tablet PO PRN ×2 (04:22→08:59)
--- NOTE | 2021-05-30 06:20 | NUR ---
Problems reprioritized. Patient report given, questions answered & plan of care reviewed with DANIEL Bynum.
[2021-05-30] MEDS ORDERED: VALBENAZINE TOSYLATE 80 MG PO SCH (08:00)
[2021-05-30] MEDS ORDERED: calcium carbonate/vitamin D3 tablet PO SCH (08:00)
[2021-05-30] MEDS ORDERED: benztropine 1mg tablet PO SCH (08:00)
[2021-05-30] MEDS ORDERED: PER5325T PO (10:06)
[2021-05-30] MEDS: heparin, porcine 5000 units/ml vial SQ SCH (10:53)
--- NOTE | 2021-05-30 12:02 | NUR ---
DC reviewed with pt. pt has all belongings. rx sent to her pharmacy by .
== END 2021-05-30 12:02 | disposition home or self-care (01) ==
LOC: PAS 11:41 → SUR 3N 16:21
PROVIDERS: ADMIT Surgery; ATTEND Surgery
DX: K43.2 Incisional hernia without obstruction or gangrene (principal); Z20.822 Contact with and (suspected) exposure to COVID-19; K21.9 Gastro-esophageal reflux disease without esophagitis; E78.5 Hyperlipidemia, unspecified; K66.0 Peritoneal adhesions (postprocedural) (postinfection); F20.0 Paranoid schizophrenia; F17.210 Nicotine dependence, cigarettes, uncomplicated; Z79.899 Other long term (current) drug therapy; Z87.440 Personal history of urinary (tract) infections
CPT/HCPCS: 36415; 49657; 64486; 80053; 82948; 85025; 93005; 96372; 96374; C1781; C9290; G0378; J1100; J1644; J2001; J2270; J2405; J2704; J3010; J3480; J3490; P9045; Q0177; U0003; U0005; A4215; A4618; J1170; J2370; J2710; J7120

== ENCOUNTER 2021-06-09 12:46 | Emergency (ER) | payer MEDICARE, MEDICAID ==
[~2021-06-09] VITALS: Ht 160 cm; Wt 59.2 kg
[~2021-06-09 12:46] MED LIST changes: +PER5325T PO; -ceFAZolin 2gm in dextrose, iso 50 ML IV ONE; -famotidine 20mg tablet PO ONE
[2021-06-09 13:01] VITALS: BP 104/68
== END 2021-06-09 21:20 | disposition left against medical advice (07) ==
LOC: ER 12:47
DX: G89.29 Other chronic pain (principal); M54.9 Dorsalgia, unspecified; Z53.21 Procedure and treatment not carried out due to patient leaving prior to being seen by health care provider

== ENCOUNTER 2021-08-28 11:26 | Emergency (ER) | payer MEDICARE, MEDICAID ==
[~2021-08-28] VITALS: Ht 160 cm; Wt 65.9 kg
[2021-08-28 11:54] VITALS: BP 103/68
[2021-08-28] MEDS ORDERED: ketorolac trometh. 30mg/ml inj. IM ONE (12:10)
== END 2021-08-28 12:47 | disposition home or self-care (01) ==
LOC: ER 11:26
DX: G89.29 Other chronic pain (principal); M54.6 Pain in thoracic spine; Z87.81 Personal history of (healed) traumatic fracture; Z59.00 Homelessness unspecified; Z88.8 Allergy status to other drugs, medicaments and biological substances; Z79.899 Other long term (current) drug therapy
CPT/HCPCS: 96372; 99283; J1885

== ENCOUNTER 2022-10-12 19:09 | Emergency (ER) | payer MEDICARE, MEDICAID ==
[~2022-10-12] VITALS: Ht 160 cm; Wt 65.9 kg
[2022-10-12 19:22] VITALS: BP 100/73
[2022-10-12] MEDS ORDERED: HYDROcodone/acetaminophen 5mg/325mg tablet PO ONE (20:45)
[2022-10-12] MEDS ORDERED: ketorolac trometh inj. 60 MG/2 ML VIAL IM ONE (20:45)
== END 2022-10-12 20:57 | disposition home or self-care (01) ==
LOC: ER 19:10
DX: G89.29 Other chronic pain (principal); M54.50 Low back pain, unspecified; M54.6 Pain in thoracic spine; Z88.5 Allergy status to narcotic agent; Z90.710 Acquired absence of both cervix and uterus; Z59.00 Homelessness unspecified
CPT/HCPCS: 96372; 99284; J1885

== ENCOUNTER 2022-11-19 15:02 | Emergency (ER) | payer MEDICARE, MEDICAID ==
[~2022-11-19] VITALS: Ht 160 cm; Wt 64.1 kg
[2022-11-19 15:09] VITALS: BP 111/90
[2022-11-19 15:36] LABS: CLARITY,URINE CLEAR (Clear); COLOR,URINE YELLOW (Yellow); GLUCOSE, URINE NEGATIVE (Neg); KETONES,URINE NEGATIVE (Neg); LEUKOCYTE ESTERASE ,URINE TRACE (Neg); NITRITES, URINE NEGATIVE (Neg); OCCULT BLOOD,URINE NEGATIVE (Neg); PROTEIN,URINE NEGATIVE (Neg); UROBILINOGEN,URINE 0.2 E.U/dL (0.2-1.0)
[2022-11-19 15:40] LABS: UA COLLECTION TYPE CLN CATCH MIDSTREAM
[2022-11-19 15:43] LABS: BACTERIA,URINE 1+ /HPF (Neg); RBC,URINE NONE SEEN /HPF (0-2)
[2022-11-19 15:44] LABS: SQUAMOUS EPITHELIAL CELL,UR FEW /LPF (FEW); TRANSITIONAL EPI CELLS,URINE FEW /HPF
[2022-11-19 15:59] LABS: BASOPHILS % (AUTO) 0.6 % (0-1); EOSINOPHILS # (AUTO) 0.2 X10'3 (0-0.9); EOSINOPHILS % (AUTO) 3.5 % (0-6); HEMATOCRIT 40.6 % (35.0-45.0); HEMOGLOBIN 13.8 g/dl (12.0-16.0); LYMPHOCYTES % (AUTO) 36.7 % (21-51); MEAN CORPUSCULAR HEMOGLOBIN 30.2 PG (27.0-31.0); MEAN CORPUSCULAR VOLUME 88.6 FL (78-98); MEAN PLATELET VOLUME 8.4 FL (7.4-10.4); MONOCYTES # (AUTO) 0.5 X10'3 (0-0.9); MONOCYTES % (AUTO) 9.3 % (2-12); NEUTROPHILS # (AUTO) 2.8 X10'3 (1.8-7.7); NEUTROPHILS % (AUTO) 49.9 % (42-75); PLATELET COUNT 271 X10'3 (140-440); RED BLOOD COUNT 4.58 X10'6 (4.20-5.60); RED CELL DISTRIBUTION WIDTH 12.8 % (11.5-14.5); WHITE BLOOD COUNT 5.6 X10'3 (4.5-11.0)
[2022-11-19 16:17] LABS: ALANINE AMINOTRANSFERASE 15 U/L (12-78); ALBUMIN 3.7 G/DL (3.4-5.0); ALBUMIN/GLOBULIN RATIO 1.2 (1.1-1.5); ALKALINE PHOSPHATASE 76 IU/L (46-116); ANION GAP 6 (8-16); ASPARTATE AMINO TRANSFERASE 15 U/L (10-37); BILIRUBIN,TOTAL 0.2 MG/DL (0.1-1.0); BLOOD UREA NITROGEN 8 MG/DL (7-18); BUN/CREATININE RATIO 12.5 (10.0-20.0); CALCIUM 9.2 MG/DL (8.5-10.1); CHLORIDE 105 MMOL/L (99-107); CREATININE 0.64 MG/DL (0.40-0.90); GLUCOSE 110 MG/DL (70-104); LIPASE 74 U/L (73-393); POTASSIUM 3.6 MMOL/L (3.5-5.1); SODIUM 139 MMOL/L (135-145); TOTAL CARBON DIOXIDE 28.5 MMOL/L (24-32); TOTAL PROTEIN 6.7 G/DL (6.4-8.2); eGFR > 90 ML/MIN
[2022-11-19] MEDS ORDERED: cephalexin 500mg capsule PO ONE (17:10)
[2022-11-19] MEDS ORDERED: PHEN-824 PO (17:13)
[2022-11-19] MEDS ORDERED: CEPH500C2 PO (17:13)
== END 2022-11-19 17:35 | disposition home or self-care (01) ==
LOC: ER 15:03
DX: N39.0 Urinary tract infection, site not specified (principal); F17.200 Nicotine dependence, unspecified, uncomplicated; Z88.5 Allergy status to narcotic agent; Z90.710 Acquired absence of both cervix and uterus; Z59.00 Homelessness unspecified
CPT/HCPCS: 36415; 80053; 81001; 83690; 85025; 87088; 99283